=== PATIENT | male | born 2000 | race Caucasian/White ===

== ENCOUNTER 2019-05-16 14:21 | Emergency (ER) | payer SELFPAY ==
[~2019-05-16] VITALS: Ht 177.8 cm; Wt 60.4 kg
[2019-05-16 15:49] VITALS: BP 118/72
== END 2019-05-16 15:52 | disposition home or self-care (01) ==
LOC: ED 15:09
DX: T76.21XA Adult sexual abuse, suspected, initial encounter (principal); F32.9 Major depressive disorder, single episode, unspecified; Y04.8XXA Assault by other bodily force, initial encounter; Y93.89 Activity, other specified; Y92.89 Other specified places as the place of occurrence of the external cause; Y99.8 Other external cause status
CPT/HCPCS: 99284